=== PATIENT | male | born 1985 | race Hispanic/Latino ===

== ENCOUNTER 2022-11-21 23:16 | Emergency (ER) | payer SELFPAY ==
[2022-11-21] MEDS ORDERED: KETOROLAC 30 MG/ML INJ ONE (23:47)
[2022-11-21] MEDS ORDERED: HYDROCODONE/APAP 7.5/325 MG TAB ONE (23:47)
--- NOTE | 2022-11-22 00:36 | ER ---
Nurse's Notes [facility] Name: Sudheer García Age: 37 yrs Sex: Male : 1985 Arrival Date: 11/21/2022 Time: 23:16 Bed 16 Private MD: Diagnosis: suspected ACL tear, right Presentation: 11/21 23:34 Chief complaint: Patient states: I was playing soccer and made contact with someone, my vc1 knee turned out a little and now it hurts really bad. Coronavirus screen: Vaccine status: Patient reports being unvaccinated. Client denies travel out of the [place] in the last 14 days. At this time, the client does not indicate any symptoms associated with coronavirus-19. Ebola Screen: Patient negative for fever greater than or equal to 101.5 degrees Fahrenheit, and additional compatible Ebola Virus Disease symptoms Patient denies exposure to infectious person. Patient denies travel to an Ebola-affected area in the 21 days before illness onset. No symptoms or risks identified at this time. Initial Sepsis Screen: Does the patient have a suspected source of infection? No. Patient's initial sepsis screen is negative. Risk Assessment: Do you want to hurt yourself or someone else? Patient reports no desire to harm self or others. Onset of symptoms was November 21, 2022 at 13:00. 23:34 Method Of Arrival: Ambulatory vc1 23:34 Acuity: SHEILA 4 vc1 Triage Assessment: 23:38 General: Appears in no apparent distress. uncomfortable, Behavior is cooperative, vc1 appropriate for age. Pain: Complains of pain in right knee Pain does not radiate. Pain currently is 10 out of 10 on a pain scale. Aggravated by increased activity, repositioning, weight bearing, Noted to be crying, resistant to movement. EENT: No deficits noted. No signs and/or symptoms were reported regarding the EENT system. Neuro: Level of Consciousness is awake, alert, obeys commands, Oriented to person, place, time, situation, Appropriate for age. Cardiovascular: No deficits noted. Respiratory: No deficits noted. GI: No deficits noted. No signs and/or symptoms were reported involving the gastrointestinal system. : No deficits noted. No signs and/or symptoms were reported regarding the genitourinary system. Derm: No deficits noted. No signs and/or symptoms reported regarding the dermatologic system. Musculoskeletal: Circulation, motion, and sensation intact. Range of motion: limited in right knee Reports pain in right knee. Historical: - Allergies: 23:37 No Known Allergies; vc1 - Home Meds: 23:37 None [Active]; vc1 - PMHx: 23:37 None; vc1 - PSHx: 23:37 None; vc1 - Immunization history:: Client reports having NOT received the Covid vaccine. - Social history:: Smoking status: Patient reports the use of cigarette tobacco products, denies chronic smoking, but will smoke occasionally. Screenin:44 [facility] ED Fall Risk Assessment (Adult) History of falling in the last 3 months, vc1 including since admission No falls in past 3 months (0 pts) Confusion or Disorientation No (0 pts) Intoxicated or Sedated No (0 pts) Impaired Gait Yes (1 pt) Mobility Assist Device Used No (0 pt) Altered Elimination No (0 pt) Score/Fall Risk Level 0 - 2 = Low Risk Oriented to surroundings, Maintained a safe environment, Educated pt \T\ family on fall prevention, incl call for assistance when getting out of bed. Abuse screen: Denies threats or abuse. Nutritional screening: No deficits noted. Tuberculosis screening: No symptoms or risk factors identified. Assessment: 23:50 General: Appears in no apparent distress. comfortable, Behavior is calm, cooperative. lg3 Pain: Complains of pain in right knee. Neuro: No deficits noted. Phelan Agitation-Sedation Scale (RASS): 0 - Alert and Calm Level of Consciousness is awake, alert, obeys commands, Oriented to person, place, time, situation. Cardiovascular: No deficits noted. Denies chest pain, shortness of breath, Capillary refill < 3 seconds Clubbing of nail beds is absent JVD is absent Patient's skin is warm and dry. Respiratory: No deficits noted. Airway is patent Respiratory effort is even, unlabored, Respiratory pattern is regular, symmetrical. GI: No deficits noted. No signs and/or symptoms were reported involving the gastrointestinal system. Abdomen is flat, non-distended. : No deficits noted. No signs and/or symptoms were reported regarding the genitourinary system. EENT: No deficits noted. No signs and/or symptoms were reported regarding the EENT system. Derm: No deficits noted. No signs and/or symptoms reported regarding the dermatologic system. Skin is intact, is healthy with good turgor, Skin is dry, Skin is normal, Skin temperature is warm. Musculoskeletal: Circulation, motion, and sensation intact. Range of motion: limited in right knee Swelling present in right knee. 11/22 00:46 Reassessment: Patient appears in no apparent distress at this time. No changes from lg3 previously documented assessment. Patient and/or family updated on plan of care and expected duration. Pain level reassessed. Patient is alert, oriented x 3, equal unlabored respirations, skin warm/dry/pink. Vital Signs: 11/21 23:34 BP 129 / 78; Temp 99.3; Weight 72.57 kg; Height 5 ft. 5 in. ; Pain 9/10; vc1 11/22 00:46 BP 124 / 77; Pulse 81; Resp 16 S; Pulse Ox 100% on R/A; lg3 11/21 23:34 Body Mass Index 26.63 (72.57 kg, 165.1 cm) vc1 11/21 23:34 Pain Scale: Adult vc1 ED Course: 11/21 23:19 Patient arrived in ED. jj6 23:19 Jessy Leone PA-C is PHCP. sb4 23:19 Kd Hanley MD is Attending Physician. sb4 23:37 Triage completed. vc1 23:40 Praveena Edwards, RN is Primary Nurse. lg3 23:44 Arm band placed on right wrist. vc1 23:45 Patient has correct armband on for positive identification. Bed in low position. Call vc1 light in reach. 23:50 Client placed on continuous cardiac and pulse oximetry monitoring. NIBP monitoring lg3 applied. Family accompanied patient. 23:50 Patient maintains SpO2 saturation greater than 95% on room air. lg3 11/22 00:03 Knee Right Wo Cont In Process Unspecified. EDMS 00:34 Barrington Carlos MD is Referral Physician. sb4 00:34 Peng Foley MD is Referral Physician. sb4 00:35 Iggy Pryor MD is Referral Physician. sb4 00:56 No provider procedures requiring assistance completed. Patient did not have IV access lg3 during this emergency room visit. 00:56 Crutch training done. Knee immobilizer applied on right knee. oe Administered Medications: 11/21 23:40 Drug: Ketorolac IM 30 mg Route: IM; Site: left deltoid; lg3 11/22 00:31 Follow up: Response: No adverse reaction; Marked relief of symptoms lg3 11/21 23:40 Drug: Hydrocodone-Acetaminophen PO (7.5 mg-325 mg) 1 tabs Route: PO; lg3 11/22 00:31 Follow up: Response: No adverse reaction; Marked relief of symptoms lg3 Medication: 11/21 23:45 VIS not applicable for this client. vc1 Outcome: 11/22 00:36 Discharge ordered by . sb4 00:56 Discharged to home with crutches, with family. lg3 00:56 Condition: stable 00:56 Discharge instructions given to patient, Instructed on discharge instructions, follow up and referral plans. medication usage, crutch walking, Demonstrated understanding of instructions, follow-up care, medications, crutch walking, Prescriptions given X 1. 00:57 Patient left the ED. lg3 Signatures: Dispatcher [employer] EDMS Valeriano Gonzalez Lacie, RN RN lg3 Lainey Elliott6 Josselin Ni RN RN vc1 Jessy Leone, PA-C PAYang sb4 Corrections: (The following items were deleted from the chart) 11/21 23:38 23:37 Allergies: Aspirin; vc1 vc1
--- NOTE | 2022-11-22 00:36 | EDPHYS ---
Physician Documentation [facility] Name: Sudheer García Age: 37 yrs Sex: Male : 1985 Arrival Date: 11/21/2022 Time: 23:16 Bed 16 Private MD: ED Physician Kd Hanley HPI: 11/21 23:41 This 37 yrs old Male presents to ER via Ambulatory with complaints of Knee sb4 Injury, Knee Pain. 23:41 Onset: The symptoms/episode began/occurred 5 hour(s) ago. The patient has not sb4 experienced similar symptoms in the past. The patient has not recently seen a physician. patient was playing soccer when his medial foot made contact with another player causing his knee to over-rotate laterally. he states it was not hurting initially but after he went home and iced it the pain became severe. neurovascular intact. Historical: - Allergies: 23:37 No Known Allergies; vc1 - Home Meds: 23:37 None [Active]; vc1 - PMHx: 23:37 None; vc1 - PSHx: 23:37 None; vc1 - Immunization history:: Client reports having NOT received the Covid vaccine. - Social history:: Smoking status: Patient reports the use of cigarette tobacco products, denies chronic smoking, but will smoke occasionally. ROS: 23:41 Constitutional: Negative for fever, chills, and weight loss. sb4 23:41 MS/extremity: Positive for injury or acute deformity, pain, swelling, tenderness, of the right knee. 23:41 All other systems are negative. Exam: 23:41 Constitutional: This is a well developed, well nourished patient who is awake, alert, sb4 and in no acute distress. 23:41 Musculoskeletal/extremity: ROM: limited active range of motion, in the right knee, limited active range of motion due to pain, limited passive range of motion due to pain, Circulation is intact in all extremities. Sensation intact. Compartment Syndrome exam of affected extremity: no numbness, no tingling, no sensation deficit, no palor, no weak pulses. Vital Signs: 23:34 BP 129 / 78; Temp 99.3; Weight 72.57 kg; Height 5 ft. 5 in. ; Pain 9/10; vc1 11/22 00:46 BP 124 / 77; Pulse 81; Resp 16 S; Pulse Ox 100% on R/A; lg3 11/21 23:34 Body Mass Index 26.63 (72.57 kg, 165.1 cm) vc1 11/21 23:34 Pain Scale: Adult vc1 MDM: 11/21 23:20 Patient medically screened. sb4 23:41 Differential diagnosis: contusion, fracture, sprain, strain. sb4 11/22 00:50 Data reviewed: vital signs, nurses notes, radiologic studies, and as a result, I will sb4 discharge patient. Historians other than the Patient: Friend: friend. Counseling: I had a detailed discussion with the patient and/or guardian regarding: the historical points, exam findings, and any diagnostic results supporting the discharge/admit diagnosis, radiology results, the need for outpatient follow up, a orthopedic surgeon. Special discussion: Further emergent ED testing is not indicated at this point in time. I discussed with the patient/guardian in detail the need to arrange with the PCP or specialist further outpatient testing, MRI. 11/21 23:35 Order name: Knee Right Wo Cont EDMS 11/22 00:29 Order name: Knee Immobilizer; Complete Time: 00:46 sb4 11/22 00:29 Order name: Crutches; Complete Time: 00:46 sb4 Administered Medications: 11/21 23:40 Drug: Ketorolac IM 30 mg Route: IM; Site: left deltoid; lg3 11/22 00:31 Follow up: Response: No adverse reaction; Marked relief of symptoms lg3 11/21 23:40 Drug: Hydrocodone-Acetaminophen PO (7.5 mg-325 mg) 1 tabs Route: PO; lg3 11/22 00:31 Follow up: Response: No adverse reaction; Marked relief of symptoms lg3 Disposition: 03:12 Co-signature as Attending Physician, Kd Hanley MD I reviewed the patient's care rt provided by the Advanced Practice Provider and agree with the diagnosis and treatment plan. Disposition Summary: 11/22/22 00:36 Discharge Ordered Location: Home sb4 Problem: new sb4 Symptoms: have improved sb4 Condition: Stable sb4 Diagnosis - suspected ACL tear, right sb4 Followup: sb4 - With: Barrington Carlos MD - When: - Reason: Further diagnostic work-up, Recheck today's complaints, Re-evaluation by your physician Followup: sb4 - With: Peng Foley MD - When: - Reason: Further diagnostic work-up Followup: sb4 - With: Iggy Pryor MD - When: - Reason: Further diagnostic work-up Discharge Instructions: - Discharge Summary Sheet sb4 - Crutch Use, Adult, [id number] sb4 - How to Use a Knee Immobilizer, [id number] sb4 - Anterior Cruciate Ligament Tear sb4 Forms: - Work release form mb4 - Medication Reconciliation Form sb4 - Thank You Letter sb4 - Antibiotic Education sb4 - Prescription Opioid Use sb4 - Patient Portal Instructions sb4 - Leadership Thank You Letter sb4 Prescriptions: - meloxicam 15 mg Oral tablet - take 1 tablet by ORAL route daily; 15 tablet; Refills: 0, Product Selection sb4 Permitted Signatures: Dispatcher [employer] Praveena Nicholson, RN RN lg3 Josselin Ni RN RN vc1 Jessy Leone PA-C PA-C sb4 Kd Hanley MD MD rt Corrections: (The following items were deleted from the chart) 11/21 23:38 23:37 Allergies: Aspirin; vc1 vc1
[2022-11-22 01:02] VITALS: TEMP 99.3
[2022-11-22 01:04] VITALS: BP 124/77; O2SAT 100
--- NOTE | 2022-11-22 14:55 | RAD REPORT ---
EXAM DESCRIPTION: CT - Knee Right Wo Cont - 11/22/2022 6:55 am CLINICAL HISTORY: The patient is 37 years old and is Male; pain, injury, swelling TECHNIQUE: Axial computed tomography images of the right knee without intravenous contrast. Sagitt al and coronal reformatted images were created and reviewed. This CT exam was performed using one o r more of the following dose reduction techniques: automated exposure control, adjustment of the mA and/or kV according to patient size, and/or use of iterative reconstruction technique. COMPARISON: No relevant prior studies available. FINDINGS: BONES/JOINTS: A small the patellar joint effusion is present. The bone mineralization an d contour is normal. There is no acute fracture or dislocation. SOFT TISSUES: Edema about the knee is noted. Irregularity of the ACL is noted with thickening a nd edema. IMPRESSION: Irregularity of the ACL with thickening and edema. Findings may be secondary to ACL inju ry. Consider further evaluation with MRI. Electronically signed by: Annmarie Asher MD 11/22/2022 12:18 AM CDT Due to temporary technical issues with the PACS/Fluency reporting system, reports are being signed by the in house radiologist without review as a courtesy to ensure prompt reporting. The interpreting r adiologist is fully responsible for the content of the report.
== END 2022-11-22 00:57 | disposition home or self-care (01) ==
LOC: ER 23:16
DX: M25.561 Pain in right knee (principal)
CPT/HCPCS: 73700; 96372; 99285